=== PATIENT | male | born 1950 | race Caucasian/White ===

== ENCOUNTER → 2016-08-26 | Outpatient (CLI) | payer MEDICARE, OTHER | LOC: GMAL 10:27 | PROVIDERS: ATTEND Family Medicine | DX: E29.1 Testicular hypofunction (principal); E03.9 Hypothyroidism, unspecified ==

== ENCOUNTER → 2017-08-29 | Outpatient (CLI) | payer OTHER | LOC: GMAH 11:43 | PROVIDERS: ATTEND Family Medicine | DX: Z12.5 Encounter for screening for malignant neoplasm of prostate (principal); I10 Essential (primary) hypertension | CPT/HCPCS: 84443; G0103 ==

== ENCOUNTER 2018-02-25 11:03 | Emergency (ER) | payer OTHER ==
[2018-02-25] MEDS ORDERED: LIDOCAINE 1% 10 ML VIAL INJ ONE (11:10)
[2018-02-25] MEDS ORDERED: CHLORHEXIDINE GLUCONATE 4 % 15 ML UD TOP ONE (11:11)
[2018-02-25] MEDS ORDERED: NEOMYCIN-BACITRACIN-POLYMYXIN 0.9 GM UD TOP ONE (11:19)
--- NOTE | 2018-02-25 11:27 | ED.PDOC ---
History of Present Illness - General Chief Complaint: Head Injury Stated Complaint: laceration to head Time Seen by Provider: 02/25/18 11:23 Source: patient, family Exam Limitations: no limitations - History of Present Illness Initial Comments: Patient had been working on a construction project when he found himself on the ground in a puddle of blood. He states that he is not quite sure what happened but was awoken when his phone rang. The person on the phone called his who brought him into the emergency room. Patient states he does feel little out of it but is alert and oriented to person place and time. He has no vision change although he admits he normally wears glasses and is not seeing perfectly clearly without them but it appears to him to be at his baselinel. He denies any nausea, diplopia, he does have a mild headache. Patient is unsure of how far he fell. He does not remember being on a ladder but there was a ladder toppled over beside him but he cannot be sure if he flipped it over or if he fell from it. Patient denies any neck pain or other pain in the rest of his body but he does have a large laceration on the left side of his posterior scalp. Patient has a past medical history significant for hypertension and he takes a baby aspirin a day. He denies any use of any other blood thinners. Occurred: just prior to arrival Severity: moderate Pain Location: head Method of Injury: fall Improving Factors: nothing Worsening Factors: nothing Loss of Consciousness: unsure Associated Symptoms (Fall): confusion, headache Allergies/Adverse Reactions: Allergies NO KNOWN ALLERGY Allergy (Verified 02/25/18 11:20) Home Medications: Ambulatory Orders ALPRAZolam [Xanax] 0.25 mg PO DAILY 02/25/18 ALPRAZolam [Xanax] 0.25 mg PO Q4H PRN 02/25/18 Aripiprazole [Abilify] 15 mg PO BEDTIME 02/25/18 Aspirin [Aspirin Adult Low Dose] 81 mg PO DAILY 02/25/18 Fluticasone Propionate (Nasal) [Flonase] 2 inh NA BEDTIME 02/25/18 Hydrochlorothiazide 25 mg PO DAILY 02/25/18 Levothyroxine Sodium [Synthroid] 175 mcg PO DAILY 02/25/18 Lisinopril 10 mg PO DAILY 02/25/18 Modafinil [Provigil] 200 mg PO DAILY 02/25/18 Pantoprazole Sodium 40 mg PO DAILY 02/25/18 Simvastatin 20 mg PO BEDTIME 02/25/18 Tamsulosin HCl [Flomax] 0.4 mg PO BEDTIME 02/25/18 Testosterone Cypionate [Depo-Testosterone] 200 mg IM .[id number] 02/25/18 Vortioxetine HBr [Trintellix] 20 mg PO BID 02/25/18 Review of Systems - Review of Systems Constitutional: States: no symptoms reported. Denies: chills, diaphoresis, fever, weakness EENTM: States: blurred vision - chronic without his glasses. Denies: eye pain, ear pain, nose pain, throat pain Respiratory: States: no symptoms reported. Denies: cough, orthopnea, short of breath Cardiology: States: no symptoms reported. Denies: chest pain, edema, palpitations Gastrointestinal/Abdominal: States: no symptoms reported. Denies: abdominal pain, nausea, vomiting Genitourinary: States: no symptoms reported Musculoskeletal: States: no symptoms reported Skin: States: see HPI Past Medical History (General) - Patient Medical History Hx Congestive Heart Failure: No Hx Hypertension: Yes Hx Diabetes: No Physical Exam - Physical Exam General Appearance: Alert, No apparent distress, Other - bleeding laceration 5 cm on the left side of scalp with 3 other supercial scratches on the superior scalp Head Injury: lacerations Eye Exam: bilateral normal ENT Exam: hearing grossly normal, no evidence of ENT injury, no dental injury Neck Exam: non-tender, full range of motion, normal alignment, normal inspection Cardiovascular/Respiratory: regular rate, rhythm, no M/R/G, normal peripheral pulses, no JVD, normal breath sounds, no respiratory distress Gastrointestinal/Abdominal: normal bowel sounds, non tender, soft Back Exam: normal inspection, no CVA tenderness, no vertebral tenderness Extremity Exam: no evidence of injury, normal range of motion, non-tender Neurologic: tailor men's ready to wear II-XII nml as tested, no motor/sensory deficits, alert, normal mood/affect, oriented x 3, other - nose to finger test abnormal Skin Exam: normal color - [place] Coma Score Best Eye Response ([place]): (4) open spontaneously Best Verbal Response ([facility]): (5) oriented Best Motor Response ([place]): (6) obeys commands [place] Total: 15 Progress - Results/Orders Results/Orders: CT head with subdural hematoma and bilateral subarachnoid hemorrhages Called for air flight to [facility] for NS consult Departure - Departure Clinical Impression: Subdural hemorrhage, Intracranial hemorrhage Disposition: Transfer to Hospital Condition: Fair Departure Forms: ED Discharge - Pt. Copy, Patient Portal Self Enrollment Instructions: DI for Concussion, DI for Closed Head Injury Referrals: Thom Gramajo MD [Primary Care Provider] - 1-2 Weeks Home Medications: Ambulatory Orders ALPRAZolam [Xanax] 0.25 mg PO DAILY 02/25/18 ALPRAZolam [Xanax] 0.25 mg PO Q4H PRN 02/25/18 Aripiprazole [Abilify] 15 mg PO BEDTIME 02/25/18 Aspirin [Aspirin Adult Low Dose] 81 mg PO DAILY 02/25/18 Fluticasone Propionate (Nasal) [Flonase] 2 inh NA BEDTIME 02/25/18 Hydrochlorothiazide 25 mg PO DAILY 02/25/18 Levothyroxine Sodium [Synthroid] 175 mcg PO DAILY 02/25/18 Lisinopril 10 mg PO DAILY 02/25/18 Modafinil [Provigil] 200 mg PO DAILY 02/25/18 Pantoprazole Sodium 40 mg PO DAILY 02/25/18 Simvastatin 20 mg PO BEDTIME 02/25/18 Tamsulosin HCl [Flomax] 0.4 mg PO BEDTIME 02/25/18 Testosterone Cypionate [Depo-Testosterone] 200 mg IM .[id number] 02/25/18 Vortioxetine HBr [Trintellix] 20 mg PO BID 02/25/18 Transfer to Outside Facility - Transfer Information Accepting Facility: [facility] Reason for Transfer: required specialist not available
--- NOTE | 2018-02-25 11:56 | CT ---
Procedure: , CT CERVICAL SPINE WITHOUT IV CONTRAST Exam Date: 02/25/2018 11:20 AM CDT Ordering Provider: RUTH COOK Clinical Indication: head injury Comparison: A fall yesterday. [place] related to old subarachnoid involves most of the left sylvian fissure is an there is scattered sulci right-sided and then minimal hemorrhage about 6 mm overlying the inferior aspect of the right frontal lobe and an Angio-Seal] millimeter of intra-axial hemorrhage and intraparenchymal hemorrhage in the left gyrus is in the cortical white matter probably Technique: CT images of the cervical spine were obtained without intravenous contrast administration. Coronal and sagittal reformations were provided for further characterization. This exam was performed according to our departmental dose-optimization program which includes automated exposure control, adjustment of the mA and/or kV according to patient size and/or use of iterative reconstruction technique. Findings: Vertebral body heights are maintained. Alignment is normal. The dens is intact. No evidence of fracture. No prevertebral soft tissue edema. Multilevel, multifactorial spondylosis is present without high-grade spinal canal stenosis. Partially seen thyroid gland and bilateral lung apices are unremarkable. Impression: No CT evidence for acute cervical osseous injury. Procedure: CT HEAD WITHOUT IV contrast Exam Date: 02/25/2018 11:20 AM CDT Ordering Provider: RUTH COOK Clinical Indication: head injury Comparison: None Technique: CT images of the head were obtained without contrast administration. Coronal and sagittal reformats were obtained. This exam was performed according to our departmental dose-optimization program which includes automated exposure control, adjustment of the mA and/or kV according to patient size and/or use of iterative reconstruction technique. Findings: Extensive subarachnoid hemorrhage is seen involving the left aspect of the suprasellar cistern and the left sylvian fissure. Scattered hemorrhage also identified within the bilateral frontal lobe sulci more so in the vertex on the right. There is a 2 mm wide and small subdural hematoma overlying the anterior aspect of the right frontal lobe convexity and is without significant adjacent mass effect. There is a 3 mm focus of intra-axial hemorrhage involving the subcortical white matter of the left superior frontal lobe gyrus. No midline shift or hydrocephalus is present. Prominent left parietal and occipital scalp contusion is present. There is no adjacent fracture. Paranasal sinuses and mastoid air cells are well aerated. Impression: Intracranial hemorrhage primarily in the form of subarachnoid hemorrhage and minimal right frontal subdural and left frontal intra-axial hemorrhage, as described. No midline shift or hydrocephalus. ::: These findings were verbally reported by Solange Howard MD to RUTH COOK on 02/25/2018 11:51 AM CDT. ::: Electronically signed by: Solange Howard MD 02/25/2018 11:54 AM CDT
[2018-02-25 13:00] VITALS: BP 124/76; TEMP 97.2; O2SAT 95
== END 2018-02-25 13:00 | disposition short-term general hospital (02) ==
LOC: ER 11:03
DX: I62.00 Nontraumatic subdural hemorrhage, unspecified (principal); S01.01XA Laceration without foreign body of scalp, initial encounter; M47.812 Spondylosis without myelopathy or radiculopathy, cervical region; I10 Essential (primary) hypertension; Z79.82 Long term (current) use of aspirin; Z79.899 Other long term (current) drug therapy; W19.XXXA Unspecified fall, initial encounter; Y93.89 Activity, other specified

== ENCOUNTER → 2018-03-20 | Outpatient (CLI) | payer OTHER | LOC: GMAH 10:29 | PROVIDERS: ATTEND Family Medicine | DX: R97.20 Elevated prostate specific antigen [PSA] (principal) ==

== ENCOUNTER → 2018-07-03 | Outpatient (CLI) | payer OTHER | LOC: GMAH 10:34 | PROVIDERS: ATTEND Family Medicine | DX: M79.674 Pain in right toe(s) (principal) ==

== ENCOUNTER → 2019-02-21 | Outpatient (CLI) | payer OTHER | LOC: GMA MATASK 10:56 | PROVIDERS: ATTEND Family Medicine | DX: I10 Essential (primary) hypertension (principal); E11.9 Type 2 diabetes mellitus without complications; Z12.5 Encounter for screening for malignant neoplasm of prostate | CPT/HCPCS: 84443; 84550; G0103 ==

== ENCOUNTER → 2020-01-29 | Outpatient (CLI) | payer OTHER | LOC: GMA MATASK 10:48 | PROVIDERS: ATTEND Family Medicine | DX: E29.1 Testicular hypofunction (principal); E11.9 Type 2 diabetes mellitus without complications; E78.2 Mixed hyperlipidemia ==

== ENCOUNTER → 2020-05-06 | Outpatient (CLI) | payer OTHER | LOC: GMA MATASK 10:01 | PROVIDERS: ATTEND Family Medicine | DX: I10 Essential (primary) hypertension (principal); Z12.5 Encounter for screening for malignant neoplasm of prostate; E11.9 Type 2 diabetes mellitus without complications | CPT/HCPCS: 84443; 84550; G0103 ==